=== PATIENT | female | born 1940 | race Caucasian/White ===

== ENCOUNTER 2019-08-21 19:00 | Inpatient (IN) | payer MEDICARE, OTHER ==
[~2019-08-21] VITALS: Ht 162.6 cm; Wt 49.3 kg
--- NOTE | ~2019-08-21 | PSY ---
PATIENT NAME:ROSALIE LOPEZ MEDICAL RECORD: [id number] : 42 LOCATION:[facility] ADMISSION DATE: 08/21/19 ACCOUNT: [id number] PSYCHIATRIC EVALUATION DATE OF EVALUATION: 08/22/19 HISTORY OF PRESENT ILLNESS: Ms. Lopez is a 78-year-old female who was admitted secondary to a poor appetite that although has been going on several months has exacerbated in the last few weeks to where she has lost 15 pounds in the last few weeks. She also reported episodes of anxiety, a panic attack which precipitated the ER visit this last time, and shakiness and generalized anxiety particularly at night. She states that she has been to the Emergency Room 3 times in the last month for some combination of these symptoms. Her general practitioner, she states, put her on a medicine that "made me too sleepy" and she only took 2 doses and then he changed her to Zoloft and she also has been getting some p.r.n. Ativan as well. She states despite this, she simply has not been able to eat and the weight loss continues. She denies any suicidal ideation. With me, she denied depressed mood, although in the ER last night they gave that as one of their admitting symptoms. Her of 59 years, had last April, but she states for the most part, she feels like she is handling it well. PAST PSYCHIATRIC HISTORY: Nothing besides the above, she denies any suicide attempts, any inpatient admissions. PAST MEDICAL HISTORY: She has a history of atrial fibrillation, cardiac arrhythmia, and apparently on 08/15/2016 elevated liver function test. History of bone density study in 2010, history of mammogram in 2010, hypertension, hypothyroidism. PAST SURGICAL HISTORY: She also has a surgical history of tubal ligation, colonoscopy, tonsillectomy. FAMILY HISTORY: Include osteoarthritis in her paternal grandmother, asthma in her mother, heart disease in her father. SOCIAL HISTORY: She was for 60 years. Her was in the . They moved frequently. They had 2 girls. 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 She is now living at home in a large house with a pool and a big lawn and states she worries about how she is going to keep those up. She has 2 daughters that live within a 30-minute drive of her. HOME MEDICATIONS: Include biotin 1 mg 1 p.o. every day, Clonidine 0.1 mg 1 p.o. every day, diltiazem 240 mg 1 p.o. every day, Levothyroxine 25 mcg 1 p.o. every day, Ativan 0.5 mg 1 p.o. every day, and Rythmol 225 mg 1 p.o. every day. DRUG AND ALCOHOL: She reported to ER doctor that she quit smoking about 34 years ago. Previous alcohol use about 8-9 standard drinks of alcohol per week, but states that she does not like drinking alone, so quit that before her had and denies illicit drug use. She, by nursing report, is 5 feet 4 inches and currently weighs 94 pounds. She states in the last couple of years, she has been up to as high as 147, but all of her weight loss has primarily been unintentional. ASSESSMENT: Generalized anxiety disorder, recent panic attack, unexplained weight loss. See past medical history. PLAN: We will add mirtazapine 15 [address] Pollack has already added Megace. We will get records from Dr. Sewell, her outpatient doctor, to see if any other workup has been done for her unexpected weight loss as she is minimizing any moderate to severe depressive symptomatology and the symptoms do not seem to match. We would consider olanzapine if a medical workup is negative in order to help stimulate appetite. Anticipated length of stay is 7-14 days. Case discussed with nursing, chart reviewed and patient interviewed. TRANSINT:[id number] Voice Confirmation ID: [id number] DOCUMENT ID: [id number] QUETA DE JESUS MD CC: [id number] DICTATION DATE: 08/22/19 1406 NURSING ASSISTANTS TEACHER: 08/23/19 0238 ADM IN [facility] [address] [place] [address]
[2019-08-21] MEDS ORDERED: CATAPRES0.1 MG PO (19:33)
[2019-08-21] MEDS ORDERED: CARDIZEM CD240 MG PO (19:34)
[2019-08-21] MEDS ORDERED: ATIVAN0.5 MG PO (19:35)
[2019-08-21] MEDS ORDERED: PROPAFENONE HC225 MG PO (19:36)
[2019-08-21] MEDS ORDERED: MERIBIN5 MG PO (19:36)
[2019-08-21] MEDS ORDERED: SYNTHROID25 MCG PO (19:37)
[2019-08-21 20:07] VITALS: BP 129/62
[2019-08-21 22:08] LABS: APPEARANCE CLEAR (CLEAR); BILIRUBIN NEGATIVE (NEGATIVE); COLOR YELLOW (YELLOW); GLUCOSE NEGATIVE (NEGATIVE); KETONE NEGATIVE (NEGATIVE); NITRITE NEGATIVE (NEGATIVE); PROTEIN NEGATIVE (NEGATIVE); SPECIFIC GRAVITY 1.015 (1.005-1.020); UROBILINOGEN NORMAL (NORMAL)
[2019-08-21 22:09] LABS: BACTERIA MANY /hpf (NEGATIVE); EPITHELIAL CELLS 0-5 /hpf (0-5); MUCUS >1+ /lpf (NONE SEEN); RED CELLS - URINE 0-5 /hpf (0-5)
--- NOTE | 2019-08-22 01:55 | NUR ---
PATIENT ARRIVED AT 18:30 FROM [facility] ER ACCOMPANIED BY HER DAUGHTERS, FULL CODE, CODE WORD IS '4021', CONSENTS SIGNED, ALERT AND ORIENTED X 4, DEPRESSED, LOST HER IN APRIL, RECENT WEIGHT LOSS, CALM AND COOPERATIVE, PHYSICIAN AWARE OF ADMIT, PRN ATIVAN 0.5 MG PO GIVEN FOR ANXIETY, WILL CONTINUE TO MONITOR.
[2019-08-22 02:47] VITALS: BP 108/60; BMI 16.6
[2019-08-22 06:31] LABS: BASOPHILS 0.2 % (0-2); HEMATOCRIT 35.4 % (36.0-48.0); IMMATURE GRANULOCYTES 0.2 % (0-5); LYMPHOCYTES 27.1 % (15-50); MCH 31.3 pg (26.0-34.0); MCHC 33.9 g/dL (31.0-37.0); MCV 92.4 fL (80.0-100.0); MEAN PLATELET VOLUME 9.3 fL (7.4-10.4); MONOCYTES 9.4 % (2-11); NEUTROPHILS 61.1 % (40-80); PLATELET COUNT 181 10x3/uL (130-400); RBC 3.83 10x6/uL (4.00-5.40); RDW 12.6 % (11.5-14.5); WBC 6.6 10x3/uL (4.8-10.8)
[2019-08-22 07:32] LABS: ANION GAP 10.5 mmol/L (8-16); BILIRUBIN - TOTAL 0.4 mg/dL (0.2-1.3); CALCIUM 9.3 mg/dL (8.5-10.1); CARBON DIOXIDE 27.5 mmol/L (21.0-32.0); CHOL - HDL RATIO 2.9 ratio (2.3-4.1); CREATININE - SERUM 0.9 mg/dL (0.6-1.3); LDL-HDL RATIO 1.7 ratio (1.5-3.5); PROTEIN - SERUM 5.8 g/dL (6.4-8.2); THYROID STIMULATING HORMONE 2.04 uIU/mL (0.36-3.74)
[2019-08-22 08:25] VITALS: BP 111/67
--- NOTE | 2019-08-22 18:08 | NUR ---
ALERT, ORIENTED, CALM THIS SHIFT. NO BEHAVIORAL ISSUES NOTED. APPETITE IMPROVED FOR SUPPER, EATING APPROXIMATELY 60% OF MEAL. MEDS ADMIN PER ORDERS WITH COMPLETE MED COMPLIANCE NOTED. FAMILY HERE AT VISITATION TIME. DAUGHTERS QUITE SUPPORTIVE. NEW ORDERS NOTED TO INCLUDE A CONTAINER OF PRUNE JUICE WITH EACH MEAL. CONTINUE PLAN OF CARE DIRECTED.
--- NOTE | 2019-08-22 19:38 | NUR ---
RECEIVED IN BEDROOM RESTING QUIETLY WITH EYES OPEN. CALM AND COOPERATIVE WITH CARE AND ASSESSMENT. ENCOURAGE TO EXPRESS NEEDS. CONTINUES TO REST CALMLY WITH EYES OPEN. CONTINUE PLAN OF CARE
[2019-08-23 07:53] VITALS: BP 138/64
--- NOTE | 2019-08-23 08:22 | NUR ---
RECEIVED IN HALLWAY OUTSIDE OF NURSES STATION. CALM AND COOPERATIVE WITH CARE AND ASSESSMENT. DEPRESSED. ENCOURAGE TO EXPRESS NEEDS. REDIRECT AND REORIENT NEEDED. EATING BREAKFAST AT THIS TIME. CONTINUE PLAN OF CARE.
[2019-08-23 10:30] VITALS: Ht 162.6 cm; Wt 49.3 kg
--- NOTE | 2019-08-23 20:05 | NUR ---
RECEIVED PATIENT SITTING IN HER ROOM READING A BOOK. ALERT AND ORIENTED. RELATES SHE IS IN THE HOSPITAL BECAUSE SHE WAS NOT EATING AND HAD LOST ALOT OF WEIGHT AND THEY WERE GOING TO TRY AND FIGURE OUT WHY. PLEASANT AND COOPERATIVE. RELATES IS FEELING ALITTLE ANXIOUS AND ASKED IF SHE HAD ANYTHING FOR IT. RELATES "I HAVE BEEN EATING EVERYTHING SINCE I HAVE BEEN HERE. I THINK I ORDERED EVERYTHING ON THE MENU FOR TOMORROW." ADMINISTER MEDS AND MONITOR COMPLIANCE. MED COMPLIANT. CONTINUE POC AND PROVIDE SAFE ENVIRONMENT.
--- NOTE | 2019-08-23 20:29 | NUR ---
PRN ATIVAN 0.5MG PO ADMINISTERED FOR ANXIETY. DENIES OTHER NEEDS.
[2019-08-23 20:41] VITALS: BP 116/55
[2019-08-24 07:12] LABS: RAPID PLASMA REAGIN Non Reactive (Non Reactive)
[2019-08-24 07:34] VITALS: BP 132/57
--- NOTE | 2019-08-24 08:00 | NUR ---
REC'D PT IN HALLWAY SOCIALIZING WITH PEERS BY THE NURSES STATION. CALM AND COOPERATIVE WITH ASSESSMENT. PRESCRIBED MEDS PROVIDED ORDERED. MED COMPLIANT. PT APPEARS TO BE DEPRESSED AT THIS TIME. WILL CPOC.
--- NOTE | 2019-08-24 12:59 | PN ---
PATIENT:ROSALIE LOPEZ MEDICAL RECORD: [id number] LOCATION:[facility] ADMISSION DATE: 08/21/19 PROGRESS NOTE DATE OF SERVICE: 08/23/2019 SUBJECTIVE: The patient's case was discussed with staff. She has no new complaint. OBJECTIVE: The patient is in good behavioral control with poor insight about her situation. She endorses a number of depressive and anxiety related symptoms. ASSESSMENT: Major depression. PLAN: Current medicines have been reviewed and will be maintained. Her long-term prognosis is guarded. TRANSINT:[id number] Voice Confirmation ID: [id number] DOCUMENT ID: [id number] CONSUELO FRIEDMAN MD at 1259 CC: [id number] DICTATION DATE: 08/23/19 1614 SUPERINTENDENT RECREATION: 08/23/195 ADM IN [place] [facility] [id number] [place] [address]
--- NOTE | 2019-08-24 19:09 | NUR ---
RECEIVED IN HALLWAY SITTING OUTSIDE OF NURSES STATION SOCIALIZING WITH PEERS. CALM AND COOPERATIVE WITH CARE AND ASSESSMENT. ENCOURAGE TO EXPRESS NEEDS. CONTINUE TO SOCIALIZE WITH PEERS. CONTINUE PLAN OF CARE
[2019-08-24 20:22] VITALS: BP 130/43
--- NOTE | 2019-08-25 08:30 | NUR ---
RECEIVED IN HALLWAY OUTSIDE OF NURSES STATION. CALM AND COOPERATIVE WITH CARE AND ASSESSMENT. NO SIGNS OF DEPRESSION THIS MORNING. SOCIALIZING WITH STAFF AND PEERS. EATING BREAKFAST AT THIS TIME. CONTINUE PLAN OF CARE.
[2019-08-25 09:55] VITALS: BP 131/53
--- NOTE | 2019-08-25 10:52 | NUR ---
SW SPOKE TO PT'S DTR TO DISCUSS DISCHARGE PLANS AND PT'S PROGRESS. SW WILL HAVE FAMILY SESSION ON TR TO DISCUSS THE POSSIBILITY FOR ASSISTED LIVING. PT'S DTR STATED SHE WOULD CALL PT'S OTHER DTR TO RELAY INFORMATION OF DISCUSSION.
--- NOTE | 2019-08-25 11:04 | PN ---
PATIENT:ROSALIE LOPEZ MEDICAL RECORD: [id number] LOCATION:[facility] ADMISSION DATE: 08/21/19 PROGRESS NOTE DATE OF SERVICE: 08/24/2019 SUBJECTIVE: The patient's case was discussed with staff. She has no new complaint. OBJECTIVE: The patient is in good behavioral control. She denies that she would seek to harm herself. ASSESSMENT: Major depression. PLAN: The patient is going to be given trazodone at a dose of 100 mg at bedtime to assist with her sleep consolidation. She will be monitored for clinical changes associated with its use. TRANSINT:[id number] Voice Confirmation ID: [id number] DOCUMENT ID: [id number] CONSUELO FRIEDMAN MD at 1104 CC: [id number] DICTATION DATE: 08/24/19 1454 PASTRY SOUS CHEF: 08/24/19 1839 ADM IN [facility] [address] [id number]
--- NOTE | 2019-08-25 21:14 | NUR ---
B.) PT IS ALERT AND ORIENTED TO SELF, SITUATION AND PLACE. SHE IS ABLE TO AMBULATE ON HER OWN WITHOUT ASSISTANCE. SHE IS PLEASANT WITH STAFF AND PEERS. SHE IS ABLE TO MAKE HER NEEDS KNOWN. I.) PROVIDED PM MEDICATIONS PRESCRIBED. REDIRECT PRN. R.) COMPLIANT WITH ALL MEDICATIONS. EASY TO REDIRECT. P.) WILL CONTINUE TO MONITOR.
[2019-08-25 23:25] VITALS: BP 123/42
--- NOTE | 2019-08-26 10:00 | NUR ---
PATIENT IS PARTICIPATING IN GROUP AT THIS TIME. NO BEHAVIORS NOTED. PT IS ALERT AND ORIENTED TO PERSON, PLACE, TIME AND SITUATION. PT CAN MAKE NEEDS KNOWN AND CAN AMBUALTE WITHOUT ASSISTANCE. PT IS COMPLIANT WITH MEDS, VITALS AND ASSESSMENTS. PT HAS BEEN VERY FRIENDLY WITH STAFF AND PEERS INTERACTS VERY WELL WITH STAFF AND PEERS. WILL CONT PLAN OF CARE.
[2019-08-26 10:57] VITALS: BP 99/43
--- NOTE | 2019-08-26 11:34 | PN ---
PATIENT:ROSALIE LOPEZ MEDICAL RECORD: [id number] LOCATION:[facility] ADMISSION DATE: 08/21/19 PROGRESS NOTE DATE OF SERVICE: 08/25/2019 SUBJECTIVE: The patient's case was discussed with staff. She has no new complaint. OBJECTIVE: The patient is cooperative. Denies that she would seek to harm herself or others and is participating in treatment. ASSESSMENT: No change in diagnoses. PLAN: Supportive and educational interventions were made. The family meeting did not happen yesterday. It is scheduled for tomorrow and I would anticipate she can be discharged afterward. TRANSINT:[id number] Voice Confirmation ID: [id number] DOCUMENT ID: [id number] CONSUELO FRIEDMAN MD at 1134 CC: [id number] DICTATION DATE: 08/25/19 1145 ATM MANAGER: 08/25/19 1304 ADM IN [place] [id number] [place] [id number]
--- NOTE | 2019-08-26 11:58 | NUR ---
SW MET WITH PT FOR INDIVIDUAL SESSION. PT STATED SHE WAS FEELING BETTER AND READY TO GO HOME. SW ALSO DISCUSSED THE TRIGGERS IN THE HOME ENVIRONMENT. PT STATED SHE WAS NOT READY TO GET RID OF HER HOME SHE SHARED WITH HER . PT STATED TO LESSEN HER ANXIETY SHE COULD TRY TO RELAX MORE WITH PUZZLES, GO ON SOME OUTINGS, AND LISTEN TO RELAXING MUSIC. PT CONTINUES TO WORK TOWARDS GOALS AND OBJECTIVES TO STABILIZE AND DISCHARGE.
--- NOTE | 2019-08-26 12:37 | NUR ---
Nutrition Follow-up: Chart reviewed. Noted pt is c/o constipation, plans to add Linzess. Diet: Regular + Prune Rudy q meal PO intake: 85-100% x last 9 meals Last BM: 08/25/19. WT: 97# (08/23/19) Meds noted: danitza, megace. No new labs. Recommend continue current diet. RD following.
--- NOTE | 2019-08-26 16:24 | PN ---
PATIENT:ROSALIE LOPEZ MEDICAL RECORD: [id number] LOCATION:[facility] ADMISSION DATE: 08/21/19 PROGRESS NOTE DATE OF SERVICE: 08/26/2019 SUBJECTIVE: The patient's case was discussed with staff. She has no new complaint. OBJECTIVE: The patient is in good behavioral control with poor insight. She is tolerating her medicines well. ASSESSMENT: Major depression. PLAN: The patient has a family session today with the social service worker. Pending the outcome of that discharge plans will be finalized. Current medicines have been reviewed. TRANSINT:[id number] Voice Confirmation ID: [id number] DOCUMENT ID: [id number] CONSUELO FRIEDMAN MD at 1624 CC: [id number] DICTATION DATE: 08/26/19 1155 JOB PLACEMENT SPECIALIST: 08/26/19 1510 ADM IN [place] [id number] [place] [address]
[2019-08-26] MEDS ORDERED: Megace ES [CHEMO] PO (16:26)
[2019-08-26] MEDS ORDERED: LINZESS145 MCG PO (16:26)
[2019-08-26] MEDS ORDERED: DESERYL PO (16:26)
[2019-08-26] MEDS ORDERED: ZOLOFT50 MG PO (16:26)
[2019-08-26 19:30] VITALS: BP 137/59
--- NOTE | 2019-08-26 23:33 | NUR ---
B)RECEIVED PATIENT SITTING AT THE NURSE'S STATION INTERACTING WITH PEERS. ALERT AND ORIENTED. REALTES SHE IS GOING HOME TOMORROW. COOPERATIVE AND PLEASANT. I)ADMINISTER MEDS AND MONITOR COMPLIANCE. R)MED COMPLIANT. COOPERATIVE WITH UNIT [facility]. P)CONTINUE POC AND PROVIDE SAFE ENVIRONMENT.
--- NOTE | 2019-08-27 07:50 | NUR ---
patient sitting and awaiting breakfast. no acute distress noted. pt is alert and oriented to person,place, time and situation. pt can make needs known and ambulate without assistance. pt is compliant with meds, vitals and assessments. will cont plan of care.
[2019-08-27 09:45] VITALS: BP 140/69
--- NOTE | 2019-08-27 11:52 | NUR ---
THOMASTENT DISCHARGE HOME WITH A FAMILY MEMBER. BELONGINGS GIVEN TO FAMILY. MEDICATION LIST AND DOCTOR APPT WENT OVER WITH PT AND FAMILY. PAPERWORK FAXED TO DOCTOR OFFICE AND SENT WITH PT. MEDICATIONS E-SCRIPTED TO PHARMACY. PT IS IN A PLESANT MOOD AND STABLE. AMBULATED TO CAR WITH FAMILY.
--- NOTE | 2019-08-28 11:26 | PN ---
PATIENT:ROSALIE LOPEZ MEDICAL RECORD: [id number] LOCATION:[facility] ADMISSION DATE: 08/21/19 PROGRESS NOTE DATE OF SERVICE: 08/27/2019 SUBJECTIVE: The patient's case was discussed with staff. She has no new complaint. OBJECTIVE: The patient is sleeping and eating well. She had an excellent meeting with her daughter's yesterday and she is going to go home today. There is no evidence of acute dangerousness or impairment of reality testing. She will be monitored for clinical changes, but current medicines will be maintained and follow up will be with her primary care physician and outpatient mental health. TRANSINT:[id number] Voice Confirmation ID: [id number] DOCUMENT ID: [id number] CONSUELO FRIEDMAN MD at 1126 CC: [id number] DICTATION DATE: 08/27/19 0742 BASTER HAND: 08/27/19 0756 DIS IN 08/27/19 [id number] [place] [address]
== END 2019-08-27 11:57 | disposition home or self-care (01) | DRG 880 ==
LOC: D.PSYCH 19:00
PROVIDERS: ADMIT Psychiatry & Neurology Psychiatry; ATTEND Psychiatry & Neurology Psychiatry
DX: F41.8 Other specified anxiety disorders (principal); E43 Unspecified severe protein-calorie malnutrition; Z68.1 Body mass index [BMI] 19.9 or less, adult; R63.4 Abnormal weight loss; I10 Essential (primary) hypertension; E03.9 Hypothyroidism, unspecified; I48.91 Unspecified atrial fibrillation; R63.0 Anorexia; K59.00 Constipation, unspecified; H91.93 Unspecified hearing loss, bilateral; E88.09 Other disorders of plasma-protein metabolism, not elsewhere classified